=== PATIENT | male | born 1965 | race Caucasian/White ===

== ENCOUNTER 2017-02-22 21:53 | Emergency (ER) | payer OTHER ==
[~2017-02-22] VITALS: Ht 180.3 cm; Wt 93.4 kg
[2017-02-22] MEDS ORDERED: FLOMAX0.4 MG PO (23:41)
[2017-02-22] MEDS ORDERED: IBUPROFEN PM C1 EACH PO (23:41)
[2017-02-22] MEDS ORDERED: LEVAQUIN 500 M500 M2 PO (23:42)
[2017-02-23 00:40] LABS: URINE COLOR ORANGE
[2017-02-23 00:43] LABS: BACTERIA 1-9 Few /HPF (None Seen); CASTS None Seen /LPF (None Seen); CRYSTALS None Seen /LPF (None Seen); SQUAMOUS None Seen /LPF (0-3); URINE RBC 3-10 Few /HPF (0-2); URINE WBC 6-15 Few /HPF (0-5)
[2017-02-23 00:48] LABS: SSA (PROTEIN CONFIRMATORY) NEGATIVE (Negative); URINE PROTEIN (DIPSTICK) NEGATIVE (Negative)
[2017-02-23 00:49] LABS: ICTOTEST (BILI CONFIRMATORY) Negative (Negative); URINE BILIRUBIN NEGATIVE (Negative)
[2017-02-23 01:15] VITALS: BP 128/73
== END 2017-02-23 01:15 | disposition home or self-care (01) ==
LOC: ER 21:53
PROVIDERS: Emergency Medicine
DX: R33.9 Retention of urine, unspecified (principal); N39.0 Urinary tract infection, site not specified; F10.99 Alcohol use, unspecified with unspecified alcohol-induced disorder